=== PATIENT | female | born 1975 | race Caucasian/White ===

== ENCOUNTER 2017-04-02 04:28 | Inpatient (IN) | payer MEDICAID, OTHER ==
[2017-03-27 13:32] LABS: BASOPHILS # (AUTO) 0.05 K/uL (0.00-0.20); BASOPHILS % (AUTO) 0.8 % (0.0-2.0); EOSINOPHILS # (AUTO) 0.12 K/uL (0.00-0.70); EOSINOPHILS % (AUTO) 1.95 % (1.0-6.0); HEMATOCRIT 44.3 % (36-46); HEMOGLOBIN 15.2 g/dL (12.0-16.0); LYMPHOCYTES # (AUTO) 2.8 K/uL (1.0-4.8); LYMPHOCYTES % (AUTO) 44.9 % (22.0-44.0); MEAN CORPUSCULAR HEMOGLOBIN 31.9 pg (26.0-34.0); MEAN CORPUSCULAR HGB CONC 34.4 G/dL (31.0-37.0); MEAN CORPUSCULAR VOLUME 93 fL (80-100); MONOCYTES # (AUTO) 0.5 K/uL (0.1-1.0); MONOCYTES % (AUTO) 8.4 % (2.0-9.0); NEUTROPHILS # (AUTO) 2.8 K/uL (1.8-7.7); PLATELET COUNT (AUTO) 274 K/uL (150-450); RED BLOOD CELL COUNT(AUTO) 4.78 MIL/uL (4.00-5.20)
[2017-03-27 13:43] LABS: CALCIUM, TOTAL 8.7 mg/dL (8.8-10.5); CREATININE 1.05 mg/dL (0.60-1.30); POTASSIUM 3.9 mmol/L (3.5-5.1)
[2017-03-27 13:45] LABS: PROTHROMBIN TIME 10.6 SEC (9.4-11.6)
[2017-03-27 13:49] LABS: ALBUMIN 3.7 g/dL (3.4-5.0); BILIRUBIN,TOTAL 0.4 mg/dL (0.1-1.0); TOTAL PROTEIN, SERUM 6.8 g/dL (6.4-8.2)
[~2017-04-02] VITALS: Ht 170.2 cm; Wt 90.9 kg
[~2017-04-02 04:28] MED LIST: ALPR1TAB7 PO; BIOT10005 PO; CIDE500T PO; CYAN500 PO; Calcium PO; DULO60CA44 PO; HYD50 PO; IBUP-2071 PO; Iron PO; LAMO100 PO; MULT1CAP32 PO; OMEP20 PO; PERCT10 PO; QUET100T PO; THIA100 PO; TRAZ-147 PO; VITA80008 PO; VITAD400 PO; ZOLP10TA7 PO
[2017-04-02] MEDS ORDERED: RINGERS SOLUTION,LACTATED 1,000 ML IV ONE ×2 (05:00)
[2017-04-02] MEDS ORDERED: CeFAZolin 2 GM/DEXTROSE 50 ML IV ONE ×2 (05:00)
[2017-04-02] MEDS ORDERED: MEPERIDINE-PF 25 MG/ML SYRINGE IVP PRN (06:30)
[2017-04-02] MEDS ORDERED: DEXAMETHASONE SOD PHOS 4 MG/ML VIAL IVP PRN (06:45)
[2017-04-02] MEDS ORDERED: BENZOCAINE/MENTHOL LOZENGE [8 LOZENGES/PACKET] PO PRN (06:45)
[2017-04-02] MEDS ORDERED: DiphenhydrAMINE HCL 50 MG/ML VIAL IVP PRN (06:45)
[2017-04-02] MEDS ORDERED: ZOLPIDEM TARTRATE 10 MG TABLET PO PRN ×2 (06:45→07:45)
[2017-04-02] MEDS ORDERED: BUPIVACAINE LIPOSOME/PF 1.3%-13.3MG/ML SUSPENSION 20 ML VIAL INJ ONE (07:30)
[2017-04-02] MEDS ORDERED: ACETAMINOPHEN 1000 MG/ISO-OSM 100 ML IV SCH (07:45)
[2017-04-02] MEDS ORDERED: DIAZEPAM 5 MG TABLET PO PRN (07:45)
[2017-04-02] MEDS ORDERED: CYCLOBENZAPRINE HCL 10 MG TABLET PO PRN (07:45)
[2017-04-02] MEDS ORDERED: HYDROmorphone 2 MG/ML SYRINGE IVP PRN (07:45)
[2017-04-02] MEDS ORDERED: OXYGEN THERAPY IH SCH ×2 (08:00)
[2017-04-02] MEDS: HYDROmorphone 2 MG/ML SYRINGE IVP PRN ×3 (08:35→08:52)
[2017-04-02] MEDS ORDERED: HYDROmorphone 2 MG/ML SYRINGE ONE (08:35)
[2017-04-02] MEDS ORDERED: MEPERIDINE-PF 25 MG/ML SYRINGE ONE (08:40)
[2017-04-02] MEDS ORDERED: FentaNYL CITRATE-PF 100 MCG/2 ML VIAL ONE (08:55)
[2017-04-02] MEDS: FentaNYL CITRATE-PF 100 MCG/2 ML VIAL IVP PRN ×3 (08:58→09:08)
[2017-04-02] MEDS: DOCUSATE SODIUM 100 MG CAPSULE PO SCH ×2 (09:00→19:45)
[2017-04-02] MEDS ORDERED: HYDROmorphone 2 MG/ML SYRINGE IVP ONE (09:02)
[2017-04-02 09:40] VITALS: BP 120/69
[2017-04-02] MEDS ORDERED: OxyCODONE HCL/ACETAMINOPHEN 10-325 MG TABLET PO PRN ×2 (11:42→12:45)
[2017-04-02] MEDS ORDERED: FERR-89 PO (11:44)
[2017-04-02] MEDS ORDERED: CALC-916 PO (11:44)
[2017-04-02 11:47] VITALS: BP 120/70
[2017-04-02] MEDS ORDERED: PROMETHAZINE HCL 25 MG/ML VIAL IM ONE (12:00)
[2017-04-02] MEDS ORDERED: INFLUENZA VIRUS VACCINE QVS 2017-18 (3YR+)/PF 60 MCG/0.5 ML SYRINGE IM ONE (12:15)
[2017-04-02] MEDS ORDERED: QUEtiapine FUMARATE 100 MG TABLET PO PRN (12:30)
[2017-04-02] MEDS: ACETAMINOPHEN 1000 MG/ISO-OSM 100 ML IV SCH ×2 (14:11→19:00)
[2017-04-02] MEDS: OxyCODONE HCL 5 MG IR TABLET PO PRN ×3 (14:20→23:48)
[2017-04-02 16:35] VITALS: BP 124/76
[2017-04-02] MEDS: ALPRAZolam 1 MG TABLET PO PRN (17:40)
[2017-04-02 19:45] VITALS: BP 137/73
[2017-04-02 23:41] VITALS: BP 115/74
[2017-04-03] MEDS: ACETAMINOPHEN 1000 MG/ISO-OSM 100 ML IV SCH ×2 (00:37→06:28)
[2017-04-03 03:43] VITALS: BP 128/84
[2017-04-03] MEDS: OxyCODONE HCL 5 MG IR TABLET PO PRN ×2 (05:12→09:34)
[2017-04-03] MEDS ORDERED: KETAMINE HCL 50 MG/ML 10 ML VIAL IVP ONE (05:31)
[2017-04-03] MEDS ORDERED: ONDANSETRON HCL 4 MG/2 ML VIAL IVP ONE (05:31)
[2017-04-03] MEDS ORDERED: FentaNYL CITRATE-PF 100 MCG/2 ML VIAL IVP ONE (05:31)
[2017-04-03] MEDS ORDERED: PROPOFOL 1% 20 ML VIAL IVP ONE (05:31)
[2017-04-03] MEDS ORDERED: NEOSTIGMINE METHYLSULFATE 1 MG/ML 10 ML VIAL IVP ONE (05:31)
[2017-04-03] MEDS ORDERED: METOCLOPRAMIDE HCL 5 MG/ML 2 ML VIAL IVP ONE (05:31)
[2017-04-03] MEDS ORDERED: EPHEDrine SULFATE 50 MG/ML VIAL IM ONE (05:31)
[2017-04-03] MEDS ORDERED: LIDOCAINE HCL/PF 2% 5 ML VIAL IM ONE (05:31)
[2017-04-03] MEDS ORDERED: GLYCOPYRROLATE 0.2 MG/ML VIAL IM ONE (05:31)
[2017-04-03] MEDS ORDERED: SUCCINYLCHOLINE CHLORIDE 20 MG/ML 10 ML VIAL IVP ONE (05:31)
[2017-04-03] MEDS ORDERED: MIDAZOLAM HCL 2 MG/2 ML VIAL IVP ONE (05:31)
[2017-04-03] MEDS ORDERED: ROCURONIUM BROMIDE 10 MG/ML 5 ML VIAL IVP ONE (05:31)
[2017-04-03] MEDS ORDERED: DEXAMETHASONE SOD PHOS 4 MG/ML VIAL IVP ONE (05:31)
[2017-04-03] MEDS ORDERED: OxyCODONE HCL/ACETAMINOPHEN 10-325 MG TABLET PO PRN (07:45)
[2017-04-03 08:00] VITALS: BP 114/71
[2017-04-03] MEDS: DOCUSATE SODIUM 100 MG CAPSULE PO SCH (08:10)
[2017-04-03] MEDS: ALPRAZolam 1 MG TABLET PO PRN (08:10)
[2017-04-03] MEDS ORDERED: DULoxetine HCL 60 MG CAPSULE PO ONE (09:00)
[2017-04-03] MEDS ORDERED: LamoTRIgine 100 MG TABLET PO SCH (09:00)
[2017-04-03] MEDS ORDERED: CARISOPRODOL 350 MG TABLET PO SCH (09:00)
== END 2017-04-03 12:30 | disposition home or self-care (01) | DRG 460 ==
LOC: 4E 04:28
PROVIDERS: ADMIT Orthopaedic Surgery Orthopaedic Surgery of the Spine; ATTEND Orthopaedic Surgery Orthopaedic Surgery of the Spine
PROC: BR1B1ZZ Fluoroscopy of Lumbosacral Joint using Low Osmolar Contrast (ICD-10-PCS; 2017-04-02)
PROC: 3E0234Z Introduction of Serum, Toxoid and Vaccine into Muscle, Percutaneous Approach (ICD-10-PCS; 2017-04-02)
PROC: 0SG30A0 Fusion of Lumbosacral Joint with Interbody Fusion Device, Anterior Approach, Anterior Column, Open Approach (ICD-10-PCS; principal; 2017-04-02 06:30)
DX: M51.37 Other intervertebral disc degeneration, lumbosacral region (principal); M54.5 Low back pain; X58.XXXA Exposure to other specified factors, initial encounter; Y99.0 Civilian activity done for income or pay; Z23 Encounter for immunization; Z88.5 Allergy status to narcotic agent; Z88.8 Allergy status to other drugs, medicaments and biological substances
CPT/HCPCS: 87081; 94760; 97161; 97165; C1713; C9290; G0238; J0131; J0330; J0690; J1100; J1170; J2175; J2250; J2405; J2550; J2704; J2765; J3010; J3490; J7120